=== PATIENT | female | born 1970 | race Two or more races ===

== ENCOUNTER → 2023-12-19 | Outpatient (CLI) | payer MEDICAID, SELFPAY | END | disposition home or self-care (01) | LOC: SWHD 09:45 | PROVIDERS: PCP Student in an Organized Health Care Education/Training Program; Referring Provider Student in an Organized Health Care Education/Training Program; Visit Provider Student in an Organized Health Care Education/Training Program | DX: E11.621 Type 2 diabetes mellitus with foot ulcer (principal); L97.521 Non-pressure chronic ulcer of other part of left foot limited to breakdown of skin; I25.10 Atherosclerotic heart disease of native coronary artery without angina pectoris; I10 Essential (primary) hypertension; M34.1 CR(E)ST syndrome; R60.0 Localized edema; Z79.4 Long term (current) use of insulin | CPT/HCPCS: 29581 ==

== ENCOUNTER → 2024-01-06 | Outpatient (CLI) | payer MEDICAID, SELFPAY | END | disposition home or self-care (01) | LOC: SWHD 11:11 | PROVIDERS: PCP Student in an Organized Health Care Education/Training Program; Referring Provider Student in an Organized Health Care Education/Training Program; Visit Provider Student in an Organized Health Care Education/Training Program | DX: E11.621 Type 2 diabetes mellitus with foot ulcer (principal); L97.521 Non-pressure chronic ulcer of other part of left foot limited to breakdown of skin; I25.10 Atherosclerotic heart disease of native coronary artery without angina pectoris; I10 Essential (primary) hypertension; M34.1 CR(E)ST syndrome; Z79.4 Long term (current) use of insulin; R60.0 Localized edema | CPT/HCPCS: 29581; A9270 ==

== ENCOUNTER → 2024-05-10 | Outpatient (CLI) | payer MEDICAID, SELFPAY | END | disposition home or self-care (01) | PROVIDERS: PCP Family Medicine; Referring Provider Family Medicine; Visit Provider Surgery | DX: S61.202A Unspecified open wound of right middle finger without damage to nail, initial encounter (principal); X58.XXXA Exposure to other specified factors, initial encounter; R60.0 Localized edema; M34.1 CR(E)ST syndrome; I10 Essential (primary) hypertension | CPT/HCPCS: 97597; 99213; A9270; G0463 ==

== ENCOUNTER → 2024-05-31 | Outpatient (CLI) | payer MEDICAID, SELFPAY | END | disposition home or self-care (01) | LOC: SWHD 14:55 | PROVIDERS: PCP Student in an Organized Health Care Education/Training Program; Referring Provider Student in an Organized Health Care Education/Training Program; Visit Provider Student in an Organized Health Care Education/Training Program | DX: S61.202A Unspecified open wound of right middle finger without damage to nail, initial encounter (principal); X58.XXXA Exposure to other specified factors, initial encounter; R60.0 Localized edema; M34.1 CR(E)ST syndrome; I10 Essential (primary) hypertension | CPT/HCPCS: 97597; A9270 ==

== ENCOUNTER → 2024-06-07 | Outpatient (CLI) | payer MEDICAID, SELFPAY | END | disposition home or self-care (01) | LOC: SWHD 15:21 | PROVIDERS: PCP Student in an Organized Health Care Education/Training Program; Referring Provider Student in an Organized Health Care Education/Training Program; Visit Provider Student in an Organized Health Care Education/Training Program | DX: S61.202A Unspecified open wound of right middle finger without damage to nail, initial encounter (principal); X58.XXXA Exposure to other specified factors, initial encounter; R60.0 Localized edema; I10 Essential (primary) hypertension | CPT/HCPCS: 97597; A9270 ==

== ENCOUNTER → 2024-06-16 | Outpatient (CLI) | payer MEDICAID, SELFPAY | END | disposition home or self-care (01) | LOC: SWHD 14:59 | PROVIDERS: PCP Student in an Organized Health Care Education/Training Program; Referring Provider Student in an Organized Health Care Education/Training Program; Visit Provider Student in an Organized Health Care Education/Training Program | DX: S61.202A Unspecified open wound of right middle finger without damage to nail, initial encounter (principal); X58.XXXA Exposure to other specified factors, initial encounter; R60.0 Localized edema; I10 Essential (primary) hypertension | CPT/HCPCS: 99213; A9270; G0463 ==

== ENCOUNTER → 2024-06-24 | Outpatient (CLI) | payer MEDICAID, SELFPAY | END | disposition home or self-care (01) | LOC: SWHD 15:03 | PROVIDERS: PCP Student in an Organized Health Care Education/Training Program; Referring Provider Student in an Organized Health Care Education/Training Program; Visit Provider Student in an Organized Health Care Education/Training Program | DX: S61.202A Unspecified open wound of right middle finger without damage to nail, initial encounter (principal); X58.XXXA Exposure to other specified factors, initial encounter; R60.0 Localized edema; I10 Essential (primary) hypertension; M34.1 CR(E)ST syndrome; M86.9 Osteomyelitis, unspecified | CPT/HCPCS: 99213; A9270; G0463 ==

== ENCOUNTER → 2024-07-02 | Outpatient (CLI) | payer MEDICAID, SELFPAY | END | disposition home or self-care (01) | LOC: SWHD 15:20 | PROVIDERS: PCP Student in an Organized Health Care Education/Training Program; Referring Provider Student in an Organized Health Care Education/Training Program; Visit Provider Surgery | DX: S61.202A Unspecified open wound of right middle finger without damage to nail, initial encounter (principal); X58.XXXA Exposure to other specified factors, initial encounter; M34.1 CR(E)ST syndrome; M86.8X4 Other osteomyelitis, hand; I10 Essential (primary) hypertension | CPT/HCPCS: 99213; A9270; G0463 ==

== ENCOUNTER → 2024-07-14 | Outpatient (CLI) | payer MEDICAID, SELFPAY | END | disposition home or self-care (01) | LOC: SWHD 14:57 | PROVIDERS: PCP Student in an Organized Health Care Education/Training Program; Referring Provider Student in an Organized Health Care Education/Training Program; Visit Provider Student in an Organized Health Care Education/Training Program | DX: S61.202A Unspecified open wound of right middle finger without damage to nail, initial encounter (principal); X58.XXXA Exposure to other specified factors, initial encounter; M34.1 CR(E)ST syndrome; M86.8X4 Other osteomyelitis, hand; I10 Essential (primary) hypertension | CPT/HCPCS: 99213; A9270; G0463 ==

== ENCOUNTER → 2024-07-19 | Outpatient (CLI) | payer MEDICAID, SELFPAY | END | disposition home or self-care (01) | LOC: SWHD 12:44 | PROVIDERS: PCP Student in an Organized Health Care Education/Training Program; Referring Provider Student in an Organized Health Care Education/Training Program; Visit Provider Student in an Organized Health Care Education/Training Program | DX: S61.202A Unspecified open wound of right middle finger without damage to nail, initial encounter (principal); X58.XXXA Exposure to other specified factors, initial encounter; M34.1 CR(E)ST syndrome; M86.8X4 Other osteomyelitis, hand; I10 Essential (primary) hypertension | CPT/HCPCS: 99213; A9270; G0463 ==

== ENCOUNTER → 2024-07-26 | Outpatient (CLI) | payer MEDICAID, SELFPAY | END | disposition home or self-care (01) | PROVIDERS: PCP Student in an Organized Health Care Education/Training Program; Referring Provider Student in an Organized Health Care Education/Training Program; Visit Provider Student in an Organized Health Care Education/Training Program | DX: S61.202A Unspecified open wound of right middle finger without damage to nail, initial encounter (principal); X58.XXXA Exposure to other specified factors, initial encounter; M34.1 CR(E)ST syndrome; M86.8X4 Other osteomyelitis, hand; I10 Essential (primary) hypertension | CPT/HCPCS: 97597; A9270 ==

== ENCOUNTER → 2024-08-02 | Outpatient (CLI) | payer MEDICAID, SELFPAY | END | disposition home or self-care (01) | LOC: SWHD 12:37 | PROVIDERS: PCP Student in an Organized Health Care Education/Training Program; Referring Provider Student in an Organized Health Care Education/Training Program; Visit Provider Student in an Organized Health Care Education/Training Program | DX: S61.202A Unspecified open wound of right middle finger without damage to nail, initial encounter (principal); X58.XXXA Exposure to other specified factors, initial encounter; M34.1 CR(E)ST syndrome; I10 Essential (primary) hypertension | CPT/HCPCS: 17250; A9270 ==

== ENCOUNTER → 2024-08-11 | Outpatient (CLI) | payer MEDICAID, SELFPAY | END | disposition home or self-care (01) | LOC: SWHD 11:02 | PROVIDERS: PCP Student in an Organized Health Care Education/Training Program; Referring Provider Student in an Organized Health Care Education/Training Program; Visit Provider Student in an Organized Health Care Education/Training Program | DX: S61.202A Unspecified open wound of right middle finger without damage to nail, initial encounter (principal); X58.XXXA Exposure to other specified factors, initial encounter; M34.1 CR(E)ST syndrome; I10 Essential (primary) hypertension | CPT/HCPCS: 97597; A9270 ==

== ENCOUNTER → 2024-08-18 | Outpatient (CLI) | payer MEDICAID, SELFPAY | END | disposition home or self-care (01) | LOC: SWHD 09:55 | PROVIDERS: PCP Student in an Organized Health Care Education/Training Program; Referring Provider Student in an Organized Health Care Education/Training Program; Visit Provider Surgery | DX: S61.202A Unspecified open wound of right middle finger without damage to nail, initial encounter (principal); X58.XXXA Exposure to other specified factors, initial encounter; M34.1 CR(E)ST syndrome; I10 Essential (primary) hypertension | CPT/HCPCS: 99213; A9270; G0463 ==

== ENCOUNTER → 2024-08-25 | Outpatient (CLI) | payer MEDICAID, SELFPAY | END | disposition home or self-care (01) | LOC: SWHD 10:52 | PROVIDERS: PCP Student in an Organized Health Care Education/Training Program; Referring Provider Student in an Organized Health Care Education/Training Program; Visit Provider Surgery | DX: S61.202A Unspecified open wound of right middle finger without damage to nail, initial encounter (principal); X58.XXXA Exposure to other specified factors, initial encounter; M34.1 CR(E)ST syndrome; I10 Essential (primary) hypertension | CPT/HCPCS: 99213; A9270; G0463 ==

== ENCOUNTER → 2024-09-22 | Outpatient (CLI) | payer MEDICAID, SELFPAY | END | disposition home or self-care (01) | LOC: SWHD 09:53 | PROVIDERS: PCP Student in an Organized Health Care Education/Training Program; Referring Provider Student in an Organized Health Care Education/Training Program; Visit Provider Student in an Organized Health Care Education/Training Program | DX: S61.202A Unspecified open wound of right middle finger without damage to nail, initial encounter (principal); X58.XXXA Exposure to other specified factors, initial encounter; M34.1 CR(E)ST syndrome; I10 Essential (primary) hypertension | CPT/HCPCS: 97597; A9270 ==